=== PATIENT | female | born 1935 | race Caucasian/White ===

== ENCOUNTER 2016-10-05 13:32 | Inpatient (IN) | payer MEDICARE ==
[~2016-10-05] VITALS: Ht 162.5 cm; Wt 120.4 kg
--- NOTE | ~2016-10-05 | CON ---
[place], [place] REPORT OF CONSULTATION NAME: GAIL PRICE [facility] #: [id number] UNIT #: [id number] ROOM: 524 DOCTOR: GRAHAM CALVO MD BIRTHDATE: [birth year] DOS: 10/06/2016 PULMONARY CONSULTATION CONSULTATION REQUESTED BY: Hospitalist services. REASON FOR CONSULTATION: Assess the patient's symptoms of shortness of breath. HISTORY OF PRESENT ILLNESS: An 80-year-old female who has been unknown to me. The patient has established an appointment to be seen in my office in 10/2016 for the assessment of symptoms of shortness of breath. The patient has been noted with symptoms of chronic shortness of breath, which has been noticed significant worsening in the last 24 hours prior to admission to the hospital. The shortness of breath was noted at rest, previous noted with exertion. Cough has been noted mostly nonproductive with some wheezing intermittently. REVIEW OF SYSTEMS: CONSTITUTIONAL SYMPTOMS: Fatigue and tiredness noted without symptoms of fever or chills. EYES: Denies any burning, redness, or tenderness. EARS, NOSE, THROAT SYMPTOMS: No sore throat, hoarseness, otalgia, postnasal drainage: CARDIOVASCULAR: Denies anginal pain. The patient was noted with chronic obesity of the lower extremities. GASTROINTESTINAL SYMPTOMS: Dysphagia, nausea, vomiting, diarrhea, abdominal pain, hematemesis, melena or hematochezia. GENITOURINARY SYMPTOMS: Denies dysuria, suprapubic pain, hematuria. MUSCULOSKELETAL: Denies acute joint pain, redness, or tenderness. SKIN: Denies lesions or rashes. CENTRAL NERVOUS SYSTEM: Denies dizziness, headache, diplopia or syncopal episodes. Remaining systems were reviewed with the patient and they were noted all negative. PAST MEDICAL HISTORY: 1. Essential hypertension. 2. Hyperlipidemia. 3. Congestive heart failure, systolic and diastolic, at this time unknown. 4. Osteoarthritis. 5. History of urinary incontinence. 6. Vitamin D deficiency. 7. Past history of CVA without any significant residual deficit. PAST SURGICAL HISTORY: Reported as cholecystectomy. SOCIAL HISTORY: The patient is currently . She has 9 children. Smoking was noted since teenager about a pack of cigarettes per day until 30 years ago. Denies history of alcohol use or any illicit drugs. [place], [place] REPORT OF CONSULTATION NAME: GAIL PRICE [facility] #: [id number] UNIT #: [id number] ROOM: 524 DOCTOR: GRAHAM CALVO MD BIRTHDATE: [birth year] FAMILY HISTORY: The patient's mother from complication related to the leukemia. Father at the age of 53 with trauma history. One of the sister has been noted history of type 2 diabetes mellitus. He has a brother who has a history of diabetes mellitus. HOME MEDICATIONS: Listed use of aspirin, Norvasc, calcium carbonate, doxazosin, Lasix, metoprolol tartrate, omega 3 fatty acid, potassium chloride, and vitamin D. DRUG ALLERGIES: No known drug allergies. PHYSICAL EXAMINATION: GENERAL: This is an 80-year-old female who has been currently noted awake and alert without any distress. Height of 5 feet 4 inches, weight of 266 pounds, BMI 45.7. VITAL SIGNS: Recorded as a normal temperature, respiratory rate 18-20, heart rate 72-102. Blood pressure 130/68-126/63. Pulse oxygen saturation of the patient recorded on 2 liters nasal cannula 98% saturation. The intake for the patient recorded as 460 ____ 400 mL in the last 24 hours. HEENT: Severe obesity. Head was atraumatic. Eyes nonicterus. NECK: Supple. Decreased posterior pharyngeal space, high tongue base and crowding of soft tissue structures. CARDIOVASCULAR: S1, S2 audible. LUNGS: Noted general reduction in breath sounds bilaterally without any wheezing or crackles at the present time. ABDOMEN: Soft, nontender. EXTREMITIES: Shows chronic venous stasis changes with mild edema. CENTRAL NERVOUS SYSTEM: Cranial nerves 2-12 intact. MUSCULOSKELETAL: No deformities. SKIN: Showed no lesions or rashes. MUSCULOSKELETAL: No deformities. LABORATORY DATA: CMP yesterday on admission, glucose 202, BUN 17, creatinine 1.03. Potassium 3.3, chloride 97, carbon dioxide 33. CBC that was done yesterday on admission shows normal CBC. CBC of this morning, the patient was noted as normal. The PT, PTT this morning was noted as normal. CMP was noted as BUN 21, creatinine 1.25 this morning, glucose 149. Albumin was 3.0. One view chest x-ray limited study for this patient that was done was reviewed, shows cardiomegaly without any gross pulmonary infiltration. IMPRESSION: 1. The patient who has been currently noted with symptoms of shortness of breath. The patient exact etiology is unclear, may be related to occult chronic obstructive pulmonary disease or congestive heart failure. The patient with acute hypoxic respiratory failure versus hypercapnia. The patient to be determined with arterial blood gases. 2. The patient with increased creatinine noted at this time since admission mildly with acute kidney injury most likely related to diuretics ____ for the medication management of congestive heart failure, but the patient's systolic, diastolic dysfunction at this time remains unknown. [place], [place] REPORT OF CONSULTATION NAME: GAIL PRICE UNIT #: [id number] ROOM: 524 DOCTOR: JEN RODRIGUEZ MD,GRAHAM BIRTHDATE: [birth year] 3. Possible exacerbation of chronic obstructive pulmonary disease would be considered as well. 4. Severe morbid obesity, current body habitus suggests the possibility of obstructive sleep apnea disorder as well. PLAN OF MANAGEMENT: At this time, continue the patient on bronchodilators. The diuretic therapy might need to be adjusted if the creatinine continue to increase. To assess the cardiology assessment, we will obtain the echocardiogram. Other cardiology service with [facility] [place] was reviewed to make further adjustment in medications. The patient was also noted with oxygen saturation 89% at this time and currently getting oxygen supplementation to maintain oxygen saturation 90% or greater. Obtain the arterial blood gas on room air to assess the current ventilatory status and the hypoxia assessment. Possible use of the BiPAP might needs to be considered if needed. Supportive therapy, plan of management and other care. Usual treatment, all other plan of management. Additional changes in treatment will be recommended based on progression of the illness. Supportive therapy, plan of care and other treatments. Thanks for allowing me to participate in the care of this patient. GRAHAM LI MD CM:CONSTR:REPORT OF CONSULTATION 1216 10/06/16 [id number] interface
--- NOTE | ~2016-10-05 | PR ---
[place], [place] PROGRESS NOTE NAME: GAIL PRICE [facility] #: [id number] UNIT #: [id number] ROOM: 524 DOCTOR: JEN RODRIGUEZ MD,GRAHAM BIRTHDATE: [birth year] DOS: 10/07/2016 SUBJECTIVE: She has been noted comfortable at this time, resting, used the BiPAP several hours last night and in the daytime for a few hours as well. She denies symptoms of chest pain. There are no symptoms of abdominal pain. Cough has been noted to decrease with shortness of breath resolving. OBJECTIVE: VITAL SIGNS: Normal temperature, respiratory rate 20, heart rate 100, blood pressure 129/57. The pulse oxygen saturation on 4 liters nasal cannula was recorded 97% saturation, with the BiPAP it was 95% saturation. HEENT: Shows no acute change. NECK: Supple. CARDIOVASCULAR: S1, S2 audible. LUNGS: The patient was noted without any wheeze or crackles at this time. Breaths are noted generally diminished bilaterally. ABDOMEN: Soft, nontender. LABORATORY AND DIAGNOSTIC DATA: BMP this morning, the patient was noted with glucose 245, BUN 39, creatinine 1.45. Sodium 135, potassium of 5.7. CBC of this morning was noted as normal CBC. Echocardiogram that was completed yesterday, assessed by the agriculture inspector, Dr. Branch, described as findings of left ventricular ejection fraction noted about 55%. Mild pulmonary hypertension was noted. The aortic valve was not clearly assessed. We did ask for a transesophageal echocardiogram for further assessment of the aortic valve as per report. Arterial blood gases that was done yesterday showed pH of 7.37, pCO2 of 55, pO2 of 43.0 on room air. IMPRESSION: 1. The patient who has been currently noted with acute hypoxic respiratory failure. 2. Acute kidney injury. 3. Congestive heart failure, possibly diastolic dysfunction. 4. Acute exacerbation of chronic obstructive pulmonary disease. 5. History of morbid obesity with suspected obstructive sleep apnea disorder. PLAN OF TREATMENT: Continue the BiPAP, supplementation with use of the oxygen, diuretics. Continue close monitoring of BUN and creatinine. Continuation of the corticosteroids, the dose has been decreased to 60 mg Solu-Medrol b.i.d. Continue with supportive plan of therapy and management, usual care, all other treatment. Further treatment to be done based on the progression of the illness. [place], [place] PROGRESS NOTE NAME: GAIL PRICE UNIT #: [id number] ROOM: 524 DOCTOR: JEN RODRIGUEZ MD,GRAHAM BIRTHDATE: [birth year] GRAHAM LI MD CM:PNTRANS [id number] GRAHAM RODRIGUEZ MD 10/07/16 1101 interface
--- NOTE | ~2016-10-05 | PR ---
[place], [place] PROGRESS NOTE NAME: GAIL PRICE UNIT #: [id number] ROOM: 524 DOCTOR: GRAHAM CALVO MD BIRTHDATE: [birth year] DOS: 10/08/2016 SUBJECTIVE: She has been noted with reduction in shortness of breath using the BiPAP as advised. Noted to be comfortable at this time. There were no symptoms of coughing or chest pain. OBJECTIVE: VITAL SIGNS: Normal temperature, respiratory rate 20, heart rate 65 and blood pressure 129/70 to 158/76. Intake is 1600 mL, output is 1900 mL. The pulse oxygen saturation 5 L nasal cannula was 97%, previously on 2 L nasal cannula it was 94% saturation. HEENT: Showed no acute change. NECK: Supple. CARDIOVASCULAR: S1, S2 audible. LUNGS: Noted without any wheezing or crackles at the present time. Breath sounds were noted to be mild to moderately decreased bilaterally. ABDOMEN: Soft, nontender. LABORATORY DATA: BMP that was done this morning, BUN 49, creatinine 1.43. Potassium 5.3, sodium of 135. IMPRESSION: 1. The patient who has been noted to be comfortable at this time, noted with reduction of the respiratory status. 2. Acute kidney injury. 3. Congestive heart failure, diastolic dysfunction. 4. Acute exacerbation of chronic obstructive pulmonary disease, suspected obstructive sleep apnea disorder. PLAN OF TREATMENT: No changes from the pulmonary standpoint if the patient is decided to be discharged home. She needs to have assessment for the oxygen supplementation. In the meantime, continue with further reduction in the dose of Solu-Medrol to 40 mg b.i.d. from today. Continue to use diuretic therapy, supportive care, other therapy, plan of management and the usual medical treatments. [place], [place] PROGRESS NOTE NAME: GAIL PRICE UNIT #: [id number] ROOM: 524 DOCTOR: GRAHAM CALVO MD BIRTHDATE: [birth year] GRAHAM LI MD CM:PNTRANS 1151 1211 GRAHAM RODRIGUEZ MD 10/08/16 1211 interface
[2016-10-05 13:32] VITALS: BP 145/67
[~2016-10-05 13:32] MED LIST: ASPIRIN81 M1 PO; CARDURA4 MG PO; FISH OIL1000 MG PO; K-Dur 20MEQ20 MEQ PO; LASIX20 MG PO; LIPITOR80 MG PO; LOPRESSOR100 MG PO; NORVASC5 MG PO; OSCAL,OYSTER S500 MG PO; TYLENOL325 M1 PO; VITAMIN D2000 IU PO
[2016-10-05 14:04] LABS: BASO % 0.4 % (0.0-1.0); EOS # 0.1 10*3/uL (0.0-0.4); EOS % 0.8 % (1.0-4.0); HEMATOCRIT 40.8 % (37.0-47.0); HEMOGLOBIN 13.9 g/dl (12.0-16.0); LYMPH # 1.8 10*3/uL (1.3-4.4); LYMPH % 19.4 % (27.0-41.0); MEAN CELL VOLUME 88.1 fl (81.0-99.0); MEAN CORPUSCULAR HGB CONC 34.1 g/dl (33.0-37.0); MEAN PLATELET VOLUME 9.8 fl (9.6-12.3); MONO # 0.6 10*3/uL (0.1-1.0); MONO % 6.1 % (3.0-9.0); NEUT # 6.6 10*3/uL (2.3-7.9); NEUT % 72.3 % (47.0-73.0); PLATELET COUNT AUTOMATED 223 10*3/uL (130-400); RED BLOOD COUNT 4.63 10*6/uL (4.10-5.10); RED CELL DISTRI WIDTH 12.8 % (0-14.5); WHITE BLOOD COUNT 9.1 10*3/uL (4.8-10.8)
[2016-10-05 14:17] LABS: ALBUMIN 3.4 gm/dl (3.1-4.5); ALKALINE PHOSPHATASE 86 U/L (45-117); BUN 17 mg/dl (7-24); CHLORIDE 97 mmol/L (98-107); CREATININE 1.03 mg/dL (0.55-1.02); POTASSIUM 3.3 mmol/L (3.5-5.1); SGOT/AST 11 IU/L (3-35); SGPT/ALT 18 U/L (12-78); SODIUM 137 mmol/L (136-145); TOTAL PROTEIN 7.3 gm/dL (6.4-8.2)
[2016-10-05 14:19] VITALS: BP 107/34
[2016-10-05 14:23] LABS: TROPONIN I < 0.015 ng/ml (<0.045)
[2016-10-05 16:00] VITALS: BP 145/57
[2016-10-05 20:00] VITALS: BP 130/38
[2016-10-06] VITALS: BP 126/63
[2016-10-06 06:54] LABS: BASO % 0.6 % (0.0-1.0); EOS # 0.1 10*3/uL (0.0-0.4); EOS % 1.9 % (1.0-4.0); HEMATOCRIT 41.6 % (37.0-47.0); HEMOGLOBIN 13.5 g/dl (12.0-16.0); LYMPH # 1.3 10*3/uL (1.3-4.4); LYMPH % 17.6 % (27.0-41.0); MEAN CORPUSCULAR HGB CONC 32.5 g/dl (33.0-37.0); MEAN PLATELET VOLUME 10.3 fl (9.6-12.3); MONO # 0.6 10*3/uL (0.1-1.0); MONO % 8.9 % (3.0-9.0); NEUT # 5.1 10*3/uL (2.3-7.9); NEUT % 70.6 % (47.0-73.0); PLATELET COUNT AUTOMATED 217 10*3/uL (130-400); RED CELL DISTRI WIDTH 13.2 % (0-14.5); WHITE BLOOD COUNT 7.2 10*3/uL (4.8-10.8)
[2016-10-06 06:55] LABS: MEAN CELL VOLUME 92.4 fl (81.0-99.0)
[2016-10-06 07:02] LABS: ACT PARTIAL THROMBO TIME 25.1 SECONDS (20.8-31.5)
[2016-10-06 07:04] LABS: CREATININE 1.25 mg/dL (0.55-1.02); FREE T4 1.37 ng/dl (0.76-1.46); MAGNESIUM 1.9 mg/dL (1.5-2.1); PHOSPHOROUS 4.6 mg/dL (2.5-4.9)
[2016-10-06 07:09] LABS: THYROID STIM HORMONE (HS) 1.19 uIU/ml (0.358-4.75)
[2016-10-06 07:16] LABS: POTASSIUM 4.5 mmol/L (3.5-5.1)
[2016-10-06 08:00] VITALS: BP 138/68
[2016-10-06 08:32] LABS: VITAMIN D, 25-HYDROXY 28.9 ng/mL (30-100)
[2016-10-06 12:00] VITALS: BP 119/51
[2016-10-06 13:17] LABS: ABG HCO3 31.3 mmol/l (22-26); ABG O2 SATURATION 80.6 % (95-97); ARTERIAL BLOOD GAS PCO2 55.1 mmHg (35-45); ARTERIAL BLOOD GAS PH 7.372 (7.35-7.45)
[2016-10-06 16:00] VITALS: BP 128/52
[2016-10-06 20:00] VITALS: BP 131/46
[2016-10-07] VITALS: BP 128/60
[2016-10-07 06:04] LABS: CREATININE 1.46 mg/dL (0.55-1.02)
[2016-10-07 06:10] LABS: BASO % 0.2 % (0.0-1.0); HEMATOCRIT 41.5 % (37.0-47.0); HEMOGLOBIN 13.8 g/dl (12.0-16.0); LYMPH # 0.9 10*3/uL (1.3-4.4); LYMPH % 15.1 % (27.0-41.0); MEAN CELL VOLUME 92.2 fl (81.0-99.0); MEAN CORPUSCULAR HGB 30.7 pg (27.0-31.0); MEAN CORPUSCULAR HGB CONC 33.3 g/dl (33.0-37.0); MEAN PLATELET VOLUME 10.4 fl (9.6-12.3); MONO # 0.1 10*3/uL (0.1-1.0); MONO % 1.4 % (3.0-9.0); NEUT # 4.7 10*3/uL (2.3-7.9); NEUT % 82.3 % (47.0-73.0); PLATELET COUNT AUTOMATED 206 10*3/uL (130-400); RED CELL DISTRI WIDTH 12.8 % (0-14.5); WHITE BLOOD COUNT 5.8 10*3/uL (4.8-10.8)
[2016-10-07 06:22] LABS: POTASSIUM 5.7 mmol/L (3.5-5.1)
[2016-10-07 08:00] VITALS: BP 129/57
[2016-10-07 12:00] VITALS: BP 140/60
[2016-10-07 16:00] VITALS: BP 135/55
[2016-10-07 20:00] VITALS: BP 130/57
[2016-10-08] VITALS: BP 128/57
[2016-10-08 06:36] LABS: CREATININE 1.43 mg/dL (0.55-1.02); POTASSIUM 5.3 mmol/L (3.5-5.1)
[2016-10-08 08:00] VITALS: BP 154/60; BP 158/76
[2016-10-08 11:37] VITALS: BP 129/70
[2016-10-08 13:20] LABS: BILIRUBIN NEGATIVE (NEGATIVE); BLOOD NEGATIVE (NEGATIVE); CLARITY SL CLOUDY (CLEAR); COLOR YELLOW (YELLOW); GLUCOSE NEGATIVE (NEGATIVE); KETONE NEGATIVE (NEGATIVE); LEUKO ESTERASE TRACE (NEGATIVE); NITRITE NEGATIVE (NEGATIVE); SPECIFIC GRAVITY <= 1.005 (1.005-1.030); UROBILINOGEN 0.2 E.U./dl (0.2-1.0)
[2016-10-08 13:33] LABS: BACTERIA 3+; RBC 0-2 rbc/hpf (0-2)
[2016-10-08] MEDS ORDERED: METOPROLOL TART50 M1 PO (13:50)
[2016-10-08] MEDS ORDERED: LASIX40 MG PO (13:53)
[2016-10-08] MEDS ORDERED: KLOR-CON M1010 ME1 PO (13:53)
[2016-10-08] MEDS ORDERED: OXYGEN NAS (14:00)
== END 2016-10-08 16:06 | disposition home health service (06) | DRG 291 ==
LOC: ED 13:32 → 5E 15:04 → EDHOLD 15:04 → 5E 15:20
PROVIDERS: Emergency Medicine; Internal Medicine Critical Care Medicine; Internal Medicine Hospice and Palliative Medicine; Internal Medicine Nephrology; Student in an Organized Health Care Education/Training Program; ADMIT Internal Medicine
PROC: 5A09457 Assistance with Respiratory Ventilation, 24-96 Consecutive Hours, Continuous Positive Airway Pressure (ICD-10-PCS; principal; 2016-10-05)
DX: I11.0 Hypertensive heart disease with heart failure (principal); N17.0 Acute kidney failure with tubular necrosis; J96.01 Acute respiratory failure with hypoxia; J44.1 Chronic obstructive pulmonary disease with (acute) exacerbation; Z68.41 Body mass index [BMI] 40.0-44.9, adult; M19.90 Unspecified osteoarthritis, unspecified site; E78.5 Hyperlipidemia, unspecified; E66.01 Morbid (severe) obesity due to excess calories; E78.6 Lipoprotein deficiency; E87.8 Other disorders of electrolyte and fluid balance, not elsewhere classified; R73.9 Hyperglycemia, unspecified; E55.9 Vitamin D deficiency, unspecified; E87.6 Hypokalemia; G47.33 Obstructive sleep apnea (adult) (pediatric); Z87.891 Personal history of nicotine dependence; Z82.49 Family history of ischemic heart disease and other diseases of the circulatory system; Z83.3 Family history of diabetes mellitus; Z82.3 Family history of stroke; Z80.9 Family history of malignant neoplasm, unspecified; Z86.73 Personal history of transient ischemic attack (TIA), and cerebral infarction without residual deficits; Z90.49 Acquired absence of other specified parts of digestive tract; Z79.899 Other long term (current) drug therapy; I50.33 Acute on chronic diastolic (congestive) heart failure

== ENCOUNTER → 2020-03-07 | Outpatient (CLI) | payer OTHER ==
[~2020-03-07] MED LIST changes: +KLOR-CON M1010 ME1 PO; +LASIX40 MG PO; +METOPROLOL TART50 M1 PO; +OXYGEN NAS
== END | disposition home or self-care (01) ==
LOC: WOUNDCARE 01:05 → EDSTATUS 23:22
PROVIDERS: ATTEND Nurse Practitioner
DX: E11.622 Type 2 diabetes mellitus with other skin ulcer (principal); L89.154 Pressure ulcer of sacral region, stage 4; L98.491 Non-pressure chronic ulcer of skin of other sites limited to breakdown of skin; S81.001D Unspecified open wound, right knee, subsequent encounter; E11.65 Type 2 diabetes mellitus with hyperglycemia; N28.89 Other specified disorders of kidney and ureter; F03.90 Unspecified dementia, unspecified severity, without behavioral disturbance, psychotic disturbance, mood disturbance, and anxiety; X58.XXXD Exposure to other specified factors, subsequent encounter